=== PATIENT | male | born 1960 | race African-American/Black ===

== ENCOUNTER 2022-05-15 01:50 | Emergency (ER) | payer OTHER ==
[~2022-05-15] VITALS: Ht 180.3 cm; Wt 91.0 kg
[2022-05-15] MEDS ORDERED: IBUPROFEN 600MG TABLET PO STA (03:35)
[2022-05-15] MEDS ORDERED: METFORMIN HCL 850MG TABLET PO ONE (03:45)
[2022-05-15] MEDS ORDERED: TERAZOSIN HCL 1MG CAPSULE PO ONE (03:45)
[2022-05-15] MEDS ORDERED: GABAPENTIN 300MG CAPSULE PO ONE (03:45)
[2022-05-15 04:18] VITALS: BP 175/98
== END 2022-05-15 04:43 | disposition home or self-care (01) ==
LOC: ER 01:50
DX: R51.9 Headache, unspecified (principal); E11.9 Type 2 diabetes mellitus without complications; I10 Essential (primary) hypertension; M54.30 Sciatica, unspecified side; Z20.822 Contact with and (suspected) exposure to COVID-19
CPT/HCPCS: 82962; 87426; 87804; 99284; C9803